=== PATIENT | male | born 1940 | race Caucasian/White ===

== ENCOUNTER 2018-07-23 07:13 | Inpatient (IN) ==
[2018-07-23] MEDS ORDERED: SODIUM CHLORIDE 0.9% 1,000 ML IV STA (07:31)
[2018-07-23] MEDS ORDERED: methylPREDNISolone SOD SUC 125 MG/2 ML VIAL IV STA (07:36)
[2018-07-23] MEDS ORDERED: ALBUTEROL NEB SOLN 5 MG/ML 20 ML/BOTTLE CONT NEB STA (07:36)
[2018-07-23 07:54] LABS: Basophils % 0.4 % (0.0-0.8); Eosinophils # 0.1 10*3/uL (0.0-0.87); Eosinophils % 0.8 % (0.00-10.9); Hematocrit 48.9 VOL% (42.0-52.0); Hemoglobin 16.1 GM/DL (14.0-18.0); Immature Granulocytes % 0.7 %; Immature Granulocytes Absolute 0.07 #; Lymphocytes # 1.5 10*3/uL (1.4-4.0); Lymphocytes % 14.4 % (21.2-54.2); Mean Corpuscular HGB Conc 32.9 GM/DL (32-36); Mean Corpuscular Volume 97.4 FL (87-102); Mean Platelet Volume 11.4 FL (9.6-12.0); Monocytes % 7.8 % (1.7-12.7); Neutrophils % 75.9 % (38.7-73.9); Platelet Count 130 T/CUMM (130-400); Red Blood Count 5.02 MC/CUMM (3.8-5.5); Red Cell Distribution Width 12.3 % (9.3-17.3)
[2018-07-23 08:03] LABS: INR 1.1; PT Patient Result 11.7 SECS; Partial Thromboplastin Time 29.5 SECS (0-40)
[2018-07-23 08:14] LABS: Albumin 3.4 G/DL (3.4-5.0); Bilirubin,Total 1.6 MG/DL (0.2-1.0); Calcium 8.6 MG/DL (8.5-10.1); Osmolality,Calculated 283.5 MOS/KG (273-304); Total Protein 7.7 G/DL (6.4-8.3)
[2018-07-23 08:16] LABS: Apearance,Urine CLEAR (Clear); Bilirubin,Urine Negative (Negative); Blood, Urine Negative (Negative); Glucose,Urine (UA) Negative (Negative); Ketones,Urine 5 mg/dL (Negative); Mucus,Urine Occasional /LPF (Occasional); Nitrite,Urine Negative (Negative); Protein,Urine Negative; RBC,Urine <1 /HPF (0-4); Urine Color Yellow (Yellow); Urine Specific Gravity 1.021 (1.001-1.035); Urine Urobilinogen < 2.0 EU/DL (0.2-1.0); WBC,Urine <1 /HPF (0-6)
[2018-07-23 08:21] LABS: Band Neutrophils 20 % (0-10); Eosinophils 1 % (0-10); Lymphocytes 17 % (20-55); Platelet Estimate Adequate; Segmented Neutrophils 54 % (50-85); Total Cells Counted 100
[2018-07-23 08:46] LABS: ABG Base Excess -5.7 MMOL/L (-2.5-2.5); ABG HCO3 16.6 MMOL/L (20-26); ABG Oxygen Saturation 94.9 % (95-100); ABG PH 7.439 (7.35-7.45); ABG PO2 73.8 MM HG (80-95); ABG TCO2 17.3 MMOL/L (23-27)
[2018-07-23] MEDS ORDERED: cefTRIAXone 1,000 MG in SODIUM CHLORIDE 0.9% 100 ML IV STA (10:19)
[2018-07-23] MEDS ORDERED: DOCUSATE SODIUM 100 MG CAPSULE PO PRN (12:04)
[2018-07-23] MEDS ORDERED: ONDANSETRON 4 MG/2 ML VIAL IV PRN (12:04)
[2018-07-23] MEDS ORDERED: BISACODYL 5 MG TABLET PO PRN (12:04)
[2018-07-23] MEDS ORDERED: ACETAMINOPHEN 325 MG TABLET PO PRN (12:04)
[2018-07-23 13:07] LABS: Risk Ratio 2.93; Thyroid Stimulating Hormone 2.15 uIU/ml (0.358-3.74); VLDL CHOLESTEROL 13.8 MG/DL
[2018-07-23] MEDS: SODIUM CHLORIDE 0.9% 1,000 ML IV SCH (13:50)
[2018-07-23] MEDS: ENOXAPARIN 40 MG/0.4 ML SYRINGE SUBCUT SCH (14:00)
[2018-07-23] MEDS ORDERED: PNEUMOCOCCAL VACCINE (13 VALENT) 0.5 ML SYRINGE IM ONE (14:49)
[2018-07-23] MEDS: methylPREDNISolone SOD SUC 125 MG/2 ML VIAL IV SCH ×2 (14:58→21:35)
[2018-07-23] MEDS: MONTELUKAST 10 MG TABLET PO SCH (14:58)
[2018-07-23] MEDS ORDERED: BENZONATATE 100 MG CAPSULE PO PRN (15:08)
[2018-07-23] MEDS ORDERED: ALBUTEROL 1.25 MG/3 ML NEB RESP TX PRN (17:40)
[2018-07-23 18:54] LABS: Apearance,Urine CLEAR (Clear); Bilirubin,Urine Negative (Negative); Blood, Urine Negative (Negative); Glucose,Urine (UA) 50 mg/dL (Negative); Ketones,Urine 5 mg/dL (Negative); Nitrite,Urine Negative (Negative); Protein,Urine Negative; RBC,Urine <1 /HPF (0-4); Urine Color Yellow (Yellow); Urine Specific Gravity 1.016 (1.001-1.035); Urine Urobilinogen < 2.0 EU/DL (0.2-1.0); WBC,Urine 1 /HPF (0-6)
[2018-07-23] MEDS: ALBUTEROL/IPRATROPIUM 3 ML NEB RESP TX SCH (19:45)
[2018-07-23] MEDS: CARVEDILOL 3.125 MG TABLET PO SCH (21:35)
[2018-07-24] MEDS: ALBUTEROL/IPRATROPIUM 3 ML NEB RESP TX SCH ×4 (01:40→20:04)
[2018-07-24] MEDS: SODIUM CHLORIDE 0.9% 1,000 ML IV SCH (05:05)
[2018-07-24 05:47] LABS: Basophils % 0.3 % (0.0-0.8); Hematocrit 44.3 VOL% (42.0-52.0); Hemoglobin 14.8 GM/DL (14.0-18.0); Immature Granulocytes % 0.3 %; Immature Granulocytes Absolute 0.04 #; Lymphocytes # 1.5 10*3/uL (1.4-4.0); Lymphocytes % 12.2 % (21.2-54.2); Mean Corpuscular HGB Conc 33.4 GM/DL (32-36); Mean Corpuscular Volume 96.9 FL (87-102); Mean Platelet Volume 11.7 FL (9.6-12.0); Monocytes % 2.7 % (1.7-12.7); Neutrophils % 84.5 % (38.7-73.9); Platelet Count 124 T/CUMM (130-400); Red Blood Count 4.57 MC/CUMM (3.8-5.5); Red Cell Distribution Width 12.2 % (9.3-17.3)
[2018-07-24 05:56] LABS: Calcium 8.4 MG/DL (8.5-10.1); Osmolality,Calculated 291.8 MOS/KG (273-304)
[2018-07-24 06:07] LABS: Hypochromasia Slight; Ovalocytes 1+; Platelet Estimate Adequate
[2018-07-24] MEDS: methylPREDNISolone SOD SUC 125 MG/2 ML VIAL IV SCH (06:39)
[2018-07-24] MEDS ORDERED: PANTOPRAZOLE 40 MG TABLET PO SCH (08:30)
[2018-07-24] MEDS ORDERED: OMEGA 3 ACID ETHYL ESTERS 1 GM CAPSULE PO SCH (09:00)
[2018-07-24] MEDS ORDERED: MULTIVITAMIN (CENTRUM) TABLET PO SCH (09:00)
[2018-07-24] MEDS ORDERED: cefTRIAXone 1,000 MG in SYRINGE 1 EACH IV SCH (09:00)
[2018-07-24] MEDS ORDERED: ATORVASTATIN 20 MG TABLET PO SCH (09:00)
[2018-07-24] MEDS: MONTELUKAST 10 MG TABLET PO SCH (09:11)
[2018-07-24] MEDS: CARVEDILOL 3.125 MG TABLET PO SCH ×2 (09:11→21:21)
[2018-07-24] MEDS ORDERED: FUROSEMIDE 40 MG/4 ML VIAL IV ONE (11:32)
[2018-07-24] MEDS: ENOXAPARIN 40 MG/0.4 ML SYRINGE SUBCUT SCH (12:08)
[2018-07-24] MEDS ORDERED: FLUTICASONE 50 MCG NASAL SPRAY 16 GM BOTTLE BOTH NARES SCH (15:00)
[2018-07-24] MEDS ORDERED: PSEUDOEPHEDRINE 30 MG TABLET PO SCH (21:00)
[2018-07-24] MEDS ORDERED: LORATADINE/PSEUDOEPH 5-120 MG (12 HR) TABLET PO SCH (21:00)
[2018-07-24] MEDS ORDERED: methylPREDNISolone SOD SUC 40 MG/1 ML VIAL IV SCH (21:00)
[2018-07-24] MEDS ORDERED: LORATADINE 10 MG TABLET PO SCH (21:00)
[2018-07-25] MEDS: ALBUTEROL/IPRATROPIUM 3 ML NEB RESP TX SCH ×2 (02:15→07:04)
[2018-07-25 04:43] LABS: Basophils % 0.1 % (0.0-0.8); Immature Granulocytes % 0.9 %; Immature Granulocytes Absolute 0.13 #; Lymphocytes # 0.9 10*3/uL (1.4-4.0); Lymphocytes % 6.4 % (21.2-54.2); Mean Corpuscular HGB Conc 34.1 GM/DL (32-36); Mean Corpuscular Volume 95.4 FL (87-102); Mean Platelet Volume 11.7 FL (9.6-12.0); Monocytes % 3.5 % (1.7-12.7); Neutrophils % 89.1 % (38.7-73.9); Platelet Count 136 T/CUMM (130-400); Red Blood Count 4.61 MC/CUMM (3.8-5.5); Red Cell Distribution Width 12.2 % (9.3-17.3); White Blood Count 14.7 T/CUMM (4-12)
[2018-07-25 05:00] LABS: Calcium 8.4 MG/DL (8.5-10.1)
[2018-07-25 07:30] VITALS: BP 127/70
[2018-07-25] MEDS ORDERED: amLODIPine 5 MG TABLET PO SCH (09:00)
== END 2018-07-25 09:27 | disposition home or self-care (01) | DRG 152 ==
LOC: N.ED 07:13 → SUATTDRO 10:21 → N.EDINP 10:21 → N.5E 12:38
PROVIDERS: ADMIT Internal Medicine